=== PATIENT | female | born 1930 | race Caucasian/White ===

== ENCOUNTER 2017-04-22 10:46 | Emergency (ER) | payer OTHER ==
[~2017-04-22] VITALS: Ht 160 cm; Wt 41.0 kg
[~2017-04-22 10:46] MED LIST: BENT20TA PO; HYDR-3533 PO; MECL25 PO; PRIN5TAB PO; WALKER STANDARD
[2017-04-22 10:48] VITALS: BP 214/90; PULSE 90; RESP 20; TEMP 97.4; O2SAT 98
[2017-04-22 10:50] VITALS: BP 169/74; PULSE 83; RESP 18; O2SAT 98
[2017-04-22 11:19] VITALS: BP 205/94; PULSE 94; RESP 12; TEMP 97.9; O2SAT 98
--- NOTE | 2017-04-22 11:23 | PD ---
HPI . increased urinary frequency, burning and left hip pain for unknown duration Chief Complaint: Complaint Time Seen by Provider: 11:23 Travel History International Travel<30 days: No Contact w/Intl Traveler<30days: No Traveled to known affect area: No History of Present Illness HPI 86-year-old female who suffers from dementia accompanied by her granddaughter who is her POA here with complaints of increased urinary frequency and burning for unknown duration, patient states about 2-3 months. Granddaughter tells me that she is not certain if this is accurate. Patient also reports some left hip pain for unknown duration. Granddaughter says that she is not certain if the patient has fallen in her home. Patient does live alone, and does not recall any remote falls, however she is a poor historian. She denies any bowel or bladder dysfunction. She has no saddle anesthesia. She has no other complaints. PFSH Past Medical History Hx Anticoagulant Therapy: No Cancer: Yes (BREAST) Cardiovascular Problems: No Chemotherapy: No Cerebrovascular Accident: No Diabetes: No Hypertension: Yes Inguinal Hernia: Yes Musculoskeletal: Yes (CHRONIC BACK PAIN) Respiratory: No Menopausal: Yes Past Surgical History Abdominal Surgery: Yes (INGUINAL HERNIA REPAIR) Gynecologic Surgery: Yes (OVARY REMOVAL) Hysterectomy: No Social History Alcohol Use: No Tobacco Use: No Substance Use: No Allergies-Medications (Allergen,Severity, Reaction): Coded Allergies: Codeine (Verified Allergy, Severe, TONGUE SWELLING AND RASH, 04/22/17) Reported Meds & Prescriptions Reported Meds & Active Scripts Active Ciprofloxacin (Ciprofloxacin HCl) 500 Mg Tab 500 Mg PO BID Reported Namenda (Memantine) 5 Mg Tab 5 Mg PO DAILY Lisinopril 20 Mg Tab 20 Mg PO DAILY Review of Systems General / Constitutional: No: Fever Eyes: No: Visual changes HENT: No: Headaches Cardiovascular: No: Chest Pain or Discomfort Respiratory: No: Shortness of Breath Gastrointestinal: No: Abdominal Pain Genitourinary: Positive: Frequency, Dysuria Musculoskeletal: Positive: Pain (left hip pain ) Skin: No Rash Neurologic: No: Weakness Psychiatric: No: Depression Endocrine: No: Polydipsia Hematologic/Lymphatic: No: Easy Bruising Physical Exam Narrative GENERAL: AAO x 1, no acute distress, Well-nourished, well-developed patient. SKIN: Warm and dry. No visible rashes or bruising. HEAD: Normocephalic and atraumatic. EYES: No scleral icterus. No injection or drainage. ENT: No nasal drainage noted. Mucous membranes pink. Airway patent. Slightly dry mucous membranes, otherwise normal oropharynx NECK: Supple, trachea midline. No JVD. CARDIOVASCULAR: Regular rate and rhythm without murmurs, gallops, or rubs. RESPIRATORY: Breath sounds equal bilaterally. No accessory muscle use. No rhonchi or rales. GASTROINTESTINAL: Abdomen soft, non-tender, nondistended. EXTREMITIES: No cyanosis or edema. tenderness to left lateral hip. BACK: Nontender without obvious deformity. No CVA tenderness. NEURO: CN II-12 intact, parking manager strength normal b/l, UE and LE 5/5, no focal deficits PSYCH: AAO x 1, normal affect. Data Data Last Documented VS Vital Signs Date Time Temp Pulse Resp B/P Pulse Ox O2 Delivery O2 Flow Rate FiO2 04/22/17 11:19 97.9 94 12 205/94 98 Room Air Orders Complete Blood Count With Diff (04/22/17 11:30) Comprehensive Metabolic Panel (04/22/17 11:30) Urinalysis - C+S If Indicated (04/22/17 11:30) Hip, Uni(Ap&Lat) W Ap Pelvis (04/22/17 11:30) Sodium Chlor 0.9% 1000 Ml Inj (Ns 1000 M (04/22/17 12:45) Acetaminophen (Tylenol) (04/22/17 12:45) Labs Laboratory Tests Test 04/22/17 11:25 White Blood Count 8.7 TH/MM3 Red Blood Count 4.86 MIL/MM3 Hemoglobin 13.6 GM/DL Hematocrit 41.2 % Mean Corpuscular Volume 84.7 FL Mean Corpuscular Hemoglobin 27.9 PG Mean Corpuscular Hemoglobin 32.9 % Concent Red Cell Distribution Width 14.8 % Platelet Count 266 TH/MM3 Mean Platelet Volume 8.2 FL Neutrophils (%) (Auto) 73.0 % Lymphocytes (%) (Auto) 18.7 % Monocytes (%) (Auto) 6.1 % Eosinophils (%) (Auto) 1.3 % Basophils (%) (Auto) 0.9 % Neutrophils # (Auto) 6.4 TH/MM3 Lymphocytes # (Auto) 1.6 TH/MM3 Monocytes # (Auto) 0.5 TH/MM3 Eosinophils # (Auto) 0.1 TH/MM3 Basophils # (Auto) 0.1 TH/MM3 CBC Comment DIFF FINAL Differential Comment Urine Color LIGHT-YELLOW Urine Turbidity CLEAR Urine pH 5.0 Urine Specific [place] 1.010 Urine Protein NEG mg/dL Urine Glucose (UA) NEG mg/dL Urine Ketones NEG mg/dL Urine Occult Blood NEG Urine Nitrite NEG Urine Bilirubin NEG Urine Urobilinogen LESS THAN 2.0 MG/DL Urine Leukocyte Esterase SMALL Urine WBC 2 /hpf Urine Squamous Epithelial <1 /hpf Cells Microscopic Urinalysis Comment CULT NOT INDICATED Sodium Level 135 MEQ/L Potassium Level 4.6 MEQ/L Chloride Level 105 MEQ/L Carbon Dioxide Level 22.5 MEQ/L Anion Gap 8 MEQ/L Blood Urea Nitrogen 34 MG/DL Creatinine 1.23 MG/DL Estimat Glomerular Filtration 42 ML/MIN Rate Random Glucose 146 MG/DL Calcium Level 9.6 MG/DL Total Bilirubin 0.2 MG/DL Aspartate Amino Transf 16 U/L (AST/SGOT) Alanine Aminotransferase 17 U/L (ALT/SGPT) Alkaline Phosphatase 73 U/L Total Protein 7.4 GM/DL Albumin 3.7 GM/DL [facility] Medical Decision Making Medical Screen Exam Complete: Yes Emergency Medical Condition: Yes Medical Record Reviewed: Yes Differential Diagnosis cystitis, pyelonephritis, OA, RA, less likely hip fracture Narrative Course 86 yr old female with dementia brought in by her granddaughter for c/o increased urine, dysuria and hip pain. Labs are unremarkable except for mild dehydration. IVF given. Encouraged drinking water at home. No WBC elevation, but slight elevation of neutrophils and some small leuks, therefore treat with short course of abx. Discussed with granddaughter. She has been advised to f/u with her pcp. X-ray without any acute fracture or dislocation. Mild degenerative changes. Laboratory Tests Test 04/22/17 11:25 White Blood Count 8.7 TH/MM3 Red Blood Count 4.86 MIL/MM3 Hemoglobin 13.6 GM/DL Hematocrit 41.2 % Mean Corpuscular Volume 84.7 FL Mean Corpuscular Hemoglobin 27.9 PG Mean Corpuscular Hemoglobin 32.9 % Concent Red Cell Distribution Width 14.8 % Platelet Count 266 TH/MM3 Mean Platelet Volume 8.2 FL Neutrophils (%) (Auto) 73.0 % Lymphocytes (%) (Auto) 18.7 % Monocytes (%) (Auto) 6.1 % Eosinophils (%) (Auto) 1.3 % Basophils (%) (Auto) 0.9 % Neutrophils # (Auto) 6.4 TH/MM3 Lymphocytes # (Auto) 1.6 TH/MM3 Monocytes # (Auto) 0.5 TH/MM3 Eosinophils # (Auto) 0.1 TH/MM3 Basophils # (Auto) 0.1 TH/MM3 CBC Comment DIFF FINAL Differential Comment Urine Color LIGHT-YELLOW Urine Turbidity CLEAR Urine pH 5.0 Urine Specific [place] 1.010 Urine Protein NEG mg/dL Urine Glucose (UA) NEG mg/dL Urine Ketones NEG mg/dL Urine Occult Blood NEG Urine Nitrite NEG Urine Bilirubin NEG Urine Urobilinogen LESS THAN 2.0 MG/DL Urine Leukocyte Esterase SMALL Urine WBC 2 /hpf Urine Squamous Epithelial <1 /hpf Cells Microscopic Urinalysis Comment CULT NOT INDICATED Sodium Level 135 MEQ/L Potassium Level 4.6 MEQ/L Chloride Level 105 MEQ/L Carbon Dioxide Level 22.5 MEQ/L Anion Gap 8 MEQ/L Blood Urea Nitrogen 34 MG/DL Creatinine 1.23 MG/DL Estimat Glomerular Filtration 42 ML/MIN Rate Random Glucose 146 MG/DL Calcium Level 9.6 MG/DL Total Bilirubin 0.2 MG/DL Aspartate Amino Transf 16 U/L (AST/SGOT) Alanine Aminotransferase 17 U/L (ALT/SGPT) Alkaline Phosphatase 73 U/L Total Protein 7.4 GM/DL Albumin 3.7 GM/DL Patient verbalized understanding of instructions, questions were answered, and thanked me for their care. I advised them if their condition worsens, please return to the nearest emergency room for further care. Diagnosis Primary Impression: Hip pain, left Additional Impression: UTI (urinary tract infection) Qualified Code: N39.0 - Urinary tract infection without hematuria, site unspecified Patient Instructions: General Instructions Additional Instructions: Please return to emergency department if your symptoms return or worsen. Follow up with your primary care provider. Take medications as prescribed. Try [id number] Tylenol for your generalized aches and pains. Scripts Ciprofloxacin 500 Mg [id number] Mg PO BID #6 TAB Ref 0 Prov:Elyssa Le MD 04/22/17 Disposition: 01 DISCHARGE HOME Condition: Stable Catherine Rinaldi Apr 22, 2017 11:23
[2017-04-22] MEDS ORDERED: LISI-515 PO (11:34)
[2017-04-22] MEDS ORDERED: NAME5TAB2 PO (11:34)
[2017-04-22 11:56] LABS: AUTOMATED NEUTROPHIL # 6.4 TH/MM3 (1.8-7.7); BASOPHIL # 0.1 TH/MM3 (0-0.2); BASOPHIL % 0.9 % (0.0-2.0); EOSINOPHIL # 0.1 TH/MM3 (0-0.4); EOSINOPHIL % 1.3 % (0.0-4.0); HEMATOCRIT 41.2 % (35.0-46.0); HEMO FLAGS DIFF FINAL; LYMPH % 18.7 % (9.0-44.0); LYMPHOCYTE # 1.6 TH/MM3 (1.0-4.8); MEAN CELL VOLUME 84.7 FL (80.0-100.0); MEAN CORPUSCULAR HEMOGLOBIN 27.9 PG (27.0-34.0); MEAN CORPUSCULAR HGB CONC 32.9 % (32.0-36.0); MONO % 6.1 % (0.0-8.0); PLATELET COUNT 266 TH/MM3 (150-450); RED BLOOD COUNT 4.86 MIL/MM3 (4.00-5.30); RED CELL DISTRIBUTION WIDTH 14.8 % (11.6-17.2); WHITE BLOOD COUNT 8.7 TH/MM3 (4.0-11.0)
[2017-04-22 12:10] LABS: BLOOD, URINE NEG (NEG); COMMENT (UR) CULT NOT INDICATED; CULTURE IF INDICATED CULT NOT INDICATED; GLUCOSE,URINE NEG (NEG); KETONE, URINE NEG (NEG); NITRITE,URINE NEG (NEG); SQUAMOUS EPITHELIAL CELL URINE <1 /hpf (0-5); URINE COLOR LIGHT-YELLOW (YELLW/STRAW)
--- NOTE | 2017-04-22 12:24 | RADRPT ---
EXAM DATE/TIME: 04/22/2017 12:20 [place] COMPARISON: No previous studies available for comparison. INDICATIONS : Left hip pain; no known injury. MEDICAL HISTORY : None. SURGICAL HISTORY : None. ENCOUNTER: Initial ACUITY: 3 days PAIN SCORE: 7/10 LOCATION: Left posterior hip. FINDINGS: Mild degenerative changes are noted involving the lower lumbar spine and bilateral hips. There is no acute fracture or dislocation. CONCLUSION: 1. No acute fracture or dislocation. 2. Mild degenerative changes involving the lower lumbar spine and bilateral hips. Jack Richardson MD on April 22, 2017 at 12:20 Board Certified Radiologist. This report was verified electronically.
[2017-04-22 12:31] LABS: ALKALINE PHOSPHATASE 73 U/L (45-117); TOTAL BILIRUBIN ADULT 0.2 MG/DL (0.2-1.0)
[2017-04-22 12:34] LABS: ALT (GPT) 17 U/L (10-53); ANION GAP 8 MEQ/L (5-15); AST (GOT) 16 U/L (15-37); BICARBONATE 22.5 MEQ/L (21.0-32.0); BLOOD UREA NITROGEN 34 MG/DL (7-18); CHLORIDE 105 MEQ/L (98-107); GLOMERULAR FILTRATION RATE 42 ML/MIN (>89); POTASSIUM 4.6 MEQ/L (3.5-5.1); SODIUM (NA) 135 MEQ/L (136-145)
[2017-04-22] MEDS ORDERED: ACETAMINOPHEN 325 MG TAB PO ONE (12:45)
[2017-04-22] MEDS ORDERED: SODIUM CHLOR 0.9% 1000 ML INJ 1,000 ML IV ONE (12:45)
[2017-04-22] MEDS ORDERED: CIPR500T2 PO (12:50)
== END 2017-04-22 14:03 | disposition home or self-care (01) ==
LOC: NEPD 10:46
DX: M25.552 Pain in left hip (principal); N39.0 Urinary tract infection, site not specified
CPT/HCPCS: 73502; 80053; 81001; 85025; 96360; 99284; J7030